=== PATIENT | male | born 1965 | race Caucasian/White ===

== ENCOUNTER 2023-08-04 07:53 | Observation (INO) | payer OTHER ==
[~2023-08-04] VITALS: Ht 177.8 cm; Wt 102.6 kg
[2023-08-04] MEDS ORDERED: GLIP2.5ER (08:21)
[2023-08-04] MEDS ORDERED: BASAGLAR K100 UNIT/1 SC (08:21)
[2023-08-04] MEDS ORDERED: ZOCOR20 MG PO (08:21)
[2023-08-04] MEDS ORDERED: LISI5 (08:21)
[2023-08-04] MEDS ORDERED: METF500 (08:21)
[2023-08-04] MEDS ORDERED: METF500 PO (08:30)
[2023-08-04] MEDS ORDERED: GLIP10 PO (08:30)
[2023-08-04] MEDS ORDERED: STEGLATRO15 MG PO (08:30)
[2023-08-04] MEDS ORDERED: LISI20 PO (08:30)
[2023-08-04 08:37] LABS: BASOPHILS ABSOLUTE AUTO 0.03 K/mm3 (0.00-0.23); BASOPHILS PERCENT AUTO 0 % (0-2); EOSINOPHILS ABSOLUTE AUTO 0.17 K/mm3 (0.00-0.68); EOSINOPHILS PERCENT AUTO 2 % (0-6); Hematocrit 46.4 % (37.0-53.0); Hemoglobin 15.7 g/dL (13.5-17.5); IMMATURE GRAN ABSOLUTE AUTO 0.04 K/mm3 (0.00-0.10); IMMATURE GRAN PERCENT AUTO 0 % (0-1); LYMPHOCYTES PERCENT AUTO 16 % (21-46); MONOCYTES PERCENT AUTO 6 % (4-13); Mean Corpuscular HGB 28.9 pg (26.0-34.0); Mean Corpuscular HGB Conc 33.8 g/dL (31.5-36.5); Mean Corpuscular Volume 85 fL (80-100); Mean Platelet Volume 9.5 fL (9.1-12.4); NEUTROPHILS ABSOLUTE AUTO 7.35 K/mm3 (1.96-9.15); NEUTROPHILS PERCENT AUTO 75 % (41-73); Platelet Count 181 K/mm3 (150-400); RDW Coefficient Variation 13.1 % (11.7-14.2); RDW Standard Deviation 39.4 fL (35.1-46.3); Red Blood Cell Count 5.44 M/mm3 (4.30-5.90); White Blood Cell Count 9.79 K/mm3 (4.00-11.30)
[2023-08-04 08:57] LABS: Albumin, Blood 3.5 g/dL (3.4-5.0); Albumin/Globulin Ratio 1.1 (0.8-1.8); Bilirubin, Total 0.8 mg/dL (0.1-1.0); Bun/Creatinine Ratio 18.8 (12.0-20.0); Calcium, Blood 9.6 mg/dL (8.5-10.1); Creatinine, Blood 0.69 mg/dL (0.60-1.20); Globulin, Blood 3.2 g/dL (2.2-4.0); Potassium, Blood 4.4 mmol/L (3.5-5.5); Total Protein, Blood 6.7 g/dL (6.4-8.2)
[2023-08-04] MEDS ORDERED: Furosemide 10 MG / ML 2ML Vial IV ONE (10:00)
[2023-08-04] MEDS ORDERED: Acetaminophen 650 MG Supp PR PRN (10:15)
[2023-08-04] MEDS ORDERED: TraZODone HCl 50 MG Tab PO PRN (10:15)
[2023-08-04] MEDS ORDERED: Bisacodyl 10 MG Supp PR PRN (10:15)
[2023-08-04] MEDS ORDERED: FLU VACC QS2023-24(6MOS UP)/PF 60 MCG/0.5 ML SYRINGE IM PRN (10:15)
[2023-08-04] MEDS ORDERED: Ondansetron 4 MG TAB PO PRN (10:20)
[2023-08-04] MEDS ORDERED: Prochlorperazine 25 MG Supp PR PRN (10:20)
[2023-08-04] MEDS ORDERED: Magnesium Hydroxide Conc 10 ML UDC PO PRN (10:20)
[2023-08-04] MEDS ORDERED: Cephalexin Monohydrate 500 MG Cap PO SCH (10:54)
[2023-08-04] MEDS ORDERED: Insulin Human Lispro 100 Units/ML 3ML Syringe SC SCH (11:30)
[2023-08-04 12:19] VITALS: BP 124/85
--- NOTE | 2023-08-04 15:15 | NUR ---
ADMISSION PT ORIENTED TO ROOM 337 FROM THE ER. CALL LIGHT IN REACH. ICE WATER & SNACKS PROVIDED. TELE IN PLACE. SINUS TACH AT 111 PER TECH. PT FAMILY AT BEDSIDE. CALL LIGHT IN REACH. PT EDUCATED TO USE URINAL FOR FLUIDS CAN BE ACCURATELY MEASURED. PT STATES HE UNDERTANDS.
[2023-08-04 15:51] VITALS: BP 124/90
[2023-08-04] MEDS ORDERED: Calcium Carbonate 500 MG Tab Chew PO PRN (16:45)
--- NOTE | 2023-08-04 17:20 | NUR ---
SHIFT SUMMARY PT ADMITTED THIS SHIFT. BLOOD SUGARS WELL CONTROLLED AT THIS TIME IN THE 140S. TELE IN PLACE. CONTINUES TO RUN SINUS TACH IN THE 110S. FINISH GRINDER REPORTED THAT PT IS HAVING OCCATIONAL ST ELEVATION MEASURING 3.1. THIS WAS REPORTED TO DR. WAN. REPEAT TROPONIN ORDERED AND EKG ORDERED. PT REPORTING HEARTBURN, TUMS ORDERED AND GIVEN FOR THIS. NO OTHER ACUTE CHANGES IN ASSESSMENT PRIOR TO DC. PT EDUCATED ON THE IMPORTANCE OF MANAGING DM2 AND THE EFFECTS ON THE BODY THAT CAN HAPPEN. NO OTHER QUESTIONS REQUIRED AT THIS TIME. VS REVIEWED. CALL LIGHT IN REACH.
[2023-08-04 19:23] VITALS: BP 120/90
[2023-08-04] MEDS ORDERED: Insulin Glargine-Yfgn 100 Unit/mL 3 ML SYR SC SCH (21:00)
[2023-08-04] MEDS ORDERED: Lactobacil 2-S.Thermo-Bifido 1 1 Cap PO SCH (21:00)
[2023-08-04] MEDS ORDERED: Famotidine 20 MG Tab PO SCH (21:00)
[2023-08-04] MEDS ORDERED: Ibuprofen 400 MG Tab PO PRN (22:30)
[2023-08-04] MEDS ORDERED: Acetaminophen 325 MG TABLET PO PRN (22:31)
[2023-08-05] VITALS (10 sets, daily range): BP systolic 101–119; BP diastolic 72–89
[2023-08-05 06:02] LABS: BASOPHILS ABSOLUTE AUTO 0.03 K/mm3 (0.00-0.23); BASOPHILS PERCENT AUTO 0 % (0-2); EOSINOPHILS ABSOLUTE AUTO 0.14 K/mm3 (0.00-0.68); EOSINOPHILS PERCENT AUTO 2 % (0-6); Hematocrit 47.1 % (37.0-53.0); Hemoglobin 15.7 g/dL (13.5-17.5); IMMATURE GRAN ABSOLUTE AUTO 0.04 K/mm3 (0.00-0.10); IMMATURE GRAN PERCENT AUTO 1 % (0-1); LYMPHOCYTES PERCENT AUTO 24 % (21-46); MONOCYTES ABSOLUTE AUTO 0.49 K/mm3 (0.16-1.47); MONOCYTES PERCENT AUTO 6 % (4-13); Mean Corpuscular HGB 28.5 pg (26.0-34.0); Mean Corpuscular HGB Conc 33.3 g/dL (31.5-36.5); Mean Corpuscular Volume 86 fL (80-100); Mean Platelet Volume 9.3 fL (9.1-12.4); NEUTROPHILS ABSOLUTE AUTO 5.57 K/mm3 (1.96-9.15); NEUTROPHILS PERCENT AUTO 67 % (41-73); Platelet Count 197 K/mm3 (150-400); RDW Coefficient Variation 13.2 % (11.7-14.2); RDW Standard Deviation 40.5 fL (35.1-46.3); White Blood Cell Count 8.27 K/mm3 (4.00-11.30)
[2023-08-05 06:28] LABS: Bun/Creatinine Ratio 18.2 (12.0-20.0); Calcium, Blood 8.8 mg/dL (8.5-10.1); Creatinine, Blood 0.72 mg/dL (0.60-1.20); Magnesium, Blood 2.1 mg/dL (1.6-2.4); Phosphorus, Blood 3.1 mg/dL (2.5-4.9); Potassium, Blood 3.9 mmol/L (3.5-5.5)
[2023-08-05] MEDS ORDERED: Sacubitril/Valsartan 24 MG-26 MG Tab PO SCH (09:00)
[2023-08-05] MEDS ORDERED: Atorvastatin 40 MG Tab PO SCH ×2 (09:00→21:00)
[2023-08-05] MEDS ORDERED: Metoprolol Succinate 25 MG TABCR PO SCH (09:00)
[2023-08-05] MEDS ORDERED: Lisinopril 20 MG Tab PO SCH (09:00)
[2023-08-05] MEDS ORDERED: Furosemide 10 MG/ML 4ML Vial IV SCH (09:00)
[2023-08-05] MEDS ORDERED: Enoxaparin 40 MG/0.4 ML SYR SC SCH (09:00)
[2023-08-05] MEDS ORDERED: Furosemide 10 MG / ML 2ML Vial IV SCH ×2 (09:00)
--- NOTE | 2023-08-05 09:20 | NUR ---
SHIFT SUMMARY PT IS A&0X4, VSS ON RA. ST 110'S-120'S PER TELEMETRY. C/O PAIN IN BILATERAL SHOULDERS, CALLED MD TO GET PAIN MEDICATION. UPDATED EVELYN'S DIET TO CONSISTENT CARB/HEART HEALTHY. C/O FEELING LIKE HIS FOOD GETS STUCK. ALWAYS FEELS FULL, YET HUNGRY. UP AD SEAN IN ROOM INDEPENDENTLY. VOIDING ADEQUATE AMOUNTS OF URINE IN URINAL. NO BM THIS SHIFT. BED IN LOWEST POSITION, CALL LIGHT WITHIN REACH.
[2023-08-05] MEDS ORDERED: NS 250 ML IV ONE (16:46)
[2023-08-05] MEDS ORDERED: Heparin Sodium 1000 Units/ML 10ML MDV ONE (16:47)
[2023-08-05] MEDS ORDERED: NS 1,000 ML IV ONE ×2 (16:47→16:58)
[2023-08-05] MEDS ORDERED: NiCARdipine HCL 1,000 MCG/5 ML SYR ONE (16:47)
[2023-08-05] MEDS ORDERED: Nitroglycerin 2 MG/20 ML BTL ONE (16:47)
[2023-08-05] MEDS ORDERED: Midazolam HCl 1MG / ML 2ML Vial ONE (16:58)
[2023-08-05] MEDS ORDERED: FentaNYL Citrate 50 MCG/ML 2 ML Injection ONE (16:58)
--- NOTE | 2023-08-05 17:17 | NUR ---
SHIFT SUMMARY Pt remains A&Ox3 this shift. VSS. Resp even nonlabored. Ambulating in room independently. Motrin effective for chronic shoulder pain. NPO since 1030 this am for cardiac angiogram. Pt father at bedside with all pt belongings. 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 Report called to [facility] for PCU transfer after angiogram.
--- NOTE | 2023-08-05 18:17 | NUR ---
PT ARRIVED TO PCU AT 1803. HE HAS A RIGHT TR BAND W/ 11CC'S OF AIR IN THE BALO[place]. IT WAS INFLATED AT 1755. IN REPORT I WAS TOLD TO WAIT TWO HOURS BEFORE DEFLATING THE BALOON. THE ANGIO SITE IS W/O HEMATOMA, BLEEDING, TENDERNESS, AND CAP REFILL IS <3SECS. THE PT WILL BE COBRA TRANSFERING OUT FOR A CABG. PT DENIES ANY ANGINA OR CHEST PRESSURE. ON TELE HE IS ST 110'S. SEE NOTES FOR ANY UPDATES.
[2023-08-05 19:21] LABS: Anti-Xa UFH, PHA Monitoring 0.56 IU/mL; International Normalized Ratio 1.02; Prothrombin Time Results 10.7 Sec (9.7-11.5)
[2023-08-05] MEDS ORDERED: Heparin Sodium,Porcine/0.5 NS 500 ML IV SCH (19:35)
--- NOTE | 2023-08-05 22:40 | NUR ---
UPDATE TR BAND SUCCESSFULLY RECOVERED. NO TENDERNESS, BLEEDING, OR HEMATOMA NOTED. PULSES PRESENT ABOVE AND BELOW SITE WITH HAND WARM TO THE TOUCH. NO TINGLING OR SENSATION LOSS REPORTED. SITE CLEANED WITH CHORHEXIDINE AND TEGADERM PLACED.
[2023-08-06 02:19] LABS: BASOPHILS ABSOLUTE AUTO 0.04 K/mm3 (0.00-0.23); BASOPHILS PERCENT AUTO 1 % (0-2); EOSINOPHILS ABSOLUTE AUTO 0.21 K/mm3 (0.00-0.68); EOSINOPHILS PERCENT AUTO 3 % (0-6); Hematocrit 47.1 % (37.0-53.0); Hemoglobin 15.7 g/dL (13.5-17.5); IMMATURE GRAN ABSOLUTE AUTO 0.02 K/mm3 (0.00-0.10); IMMATURE GRAN PERCENT AUTO 0 % (0-1); LYMPHOCYTES ABSOLUTE AUTO 2.36 K/mm3 (0.84-5.20); LYMPHOCYTES PERCENT AUTO 37 % (21-46); MONOCYTES ABSOLUTE AUTO 0.55 K/mm3 (0.16-1.47); MONOCYTES PERCENT AUTO 9 % (4-13); Mean Corpuscular HGB 28.6 pg (26.0-34.0); Mean Corpuscular HGB Conc 33.3 g/dL (31.5-36.5); Mean Corpuscular Volume 86 fL (80-100); NEUTROPHILS ABSOLUTE AUTO 3.27 K/mm3 (1.96-9.15); NEUTROPHILS PERCENT AUTO 51 % (41-73); Platelet Count 185 K/mm3 (150-400); RDW Coefficient Variation 13.2 % (11.7-14.2); RDW Standard Deviation 40.8 fL (35.1-46.3); Red Blood Cell Count 5.49 M/mm3 (4.30-5.90); White Blood Cell Count 6.45 K/mm3 (4.00-11.30)
[2023-08-06 03:06] LABS: Bun/Creatinine Ratio 23.4 (12.0-20.0); Creatinine, Blood 0.77 mg/dL (0.60-1.20); Magnesium, Blood 2.2 mg/dL (1.6-2.4); Potassium, Blood 3.9 mmol/L (3.5-5.5)
[2023-08-06] MEDS ORDERED: Dose Adjust by Pharmacy XX STA (03:15)
[2023-08-06] MEDS ORDERED: Heparin Sodium 5000 Units/ML 1ML MDV IV ONE (03:20)
[2023-08-06 03:24] VITALS: BP 121/83
--- NOTE | 2023-08-06 05:16 | NUR ---
SHIFT SUMMARY A/Ox4 AND COOPERATIVE WITH CARE. ANSWERS QUESTIONS APPROPRIATELY AND ABLE TO MAKE HIS NEEDS KNOWN. NO ACUTE EVENTS OVERNIGHT. CARDIAC, REMAINS IN SR-ST 90-100'S THROUGHOUT THE NIGHT WITH NO REPORTS OF CP OR PRESSURE. SBP REMAINS STABLE RANGING 110-120'S. UNDERWENT ANGIOGRAM ON 08/05 WITH RIGHT RADIAL ACCESS SITE WNL. SEE UPDATE NOTE FOR DETAILS. RESPIRATORY, MAINTAINS SPO2 >90% ON RA WITH NO REPORTS OF SOB OR DYSPNEA NOTED. PT REPORTS BEING ABLE TO LAY FLAT WITH SIGNIFICANT IMPROVEMENT TO ABILITY TO BREATH WHEN COMPARED TO PRE-ADMISSION. SNORING WHEN SLEEPING NOTED. GI/, ABLE TO AMBULATE TO BATHROOM WITH MINIMAL ASSISTANCE TO MANAGED IV POLE. VOIDING YELLOW URINE WITHOUT DIFFICULTY. NO BM THIS SHIFT. COME HEARTBURN REPORTED WITH PRN TUMS GIVEN. HEPARIN gtt IS BEING MANAGED BY PHARMACY AND HAS BEEN INFUSING THROUGHOUT THE NIGHT ORDERED PER EMAR. PENDING COBRA TRANSFER TO [facility] THIS AM. NO NEW ORDERS AT THIS TIME, WILL REPORT TO ONCOMING RN. GEORGINA MONTOYA OF THIS NOTE.
--- NOTE | 2023-08-06 05:44 | NUR ---
UPDATE GAVE REPORT TO RECEIVING AGNELA SOUZA AT [facility]. ALL QUESTIONS ANSWERED. LINDSAY ERICKSON OF THIS NOTE
[2023-08-06 05:52] VITALS: BP 121/93
[2023-08-06] MEDS ORDERED: Omeprazole 20 MG CapCR PO SCH (06:00)
[2023-08-06 06:11] VITALS: BP 121/93
--- NOTE | 2023-08-06 06:29 | NUR ---
UPDATE [facility] ARRIVED TO CLINICAL PRACTITIONER PT FOR TRANSFER TO [facility] FOR HIGHER LEVEL OF CARE. REPORT GIVEN TO EMS, ALL QUESTIONS ANSWERED. VSS, GEORGINA UPON TRANSFER.
[2023-08-06] MEDS ORDERED: Torsemide 20 MG TAB PO SCH (09:00)
[2023-08-06] MEDS ORDERED: Empagliflozin 10 MG TAB PO SCH (09:00)
[2023-08-06] MEDS ORDERED: Aspirin 81 MG Chew PO SCH (09:00)
== END 2023-08-06 06:20 | disposition short-term general hospital (02) ==
LOC: ER 07:53 → SURS 07:54 → MEDS 12:17 → PCU 08-05 17:19
PROVIDERS: Emergency Medicine; Internal Medicine Cardiovascular Disease; ADMIT Hospitalist
DX: I11.0 Hypertensive heart disease with heart failure (principal); I50.21 Acute systolic (congestive) heart failure; E11.40 Type 2 diabetes mellitus with diabetic neuropathy, unspecified; E78.5 Hyperlipidemia, unspecified; Z79.899 Other long term (current) drug therapy
CPT/HCPCS: 36415; 71045; 76937; 80048; 80053; 82947; 83735; 83880; 84100; 84484; 85025; 85520; 85610; 85730; 93005; 93010; 93306; 93454; 94762; 96372; 96374; 96375; 96376; 99152; 99153; 99285-25; A9270; C1769; C1887; C1894; G0378; J1644; J1650; J1815; J1940; J2250; J3010; J7030; J7050; Q9967

== ENCOUNTER → 2024-07-01 | Outpatient (CLI) | payer OTHER ==
[~2024-07-01] MED LIST: BASAGLAR K100 UNIT/1 SC; GLIP10 PO; GLIP2.5ER; LISI20 PO; LISI5; METF500; METF500 PO; STEGLATRO15 MG PO; ZOCOR20 MG PO
[2024-07-01 13:19] LABS: Albumin, Blood 3.4 g/dL (3.4-5.0); Albumin/Globulin Ratio 0.9 (0.8-1.8); Bilirubin, Total 0.9 mg/dL (0.1-1.0); Bun/Creatinine Ratio 32.5 (12.0-20.0); Calcium, Blood 9.4 mg/dL (8.5-10.1); Creatinine, Blood 0.74 mg/dL (0.60-1.20); Globulin, Blood 3.7 g/dL (2.2-4.0); Potassium, Blood 4.2 mmol/L (3.5-5.5); Total Protein, Blood 7.1 g/dL (6.4-8.2)
== END ==
LOC: LAB SHORT 11:46 → LAB 11:46 → LAB FUT 11-03 09:55
PROVIDERS: Family Medicine
DX: E11.9 Type 2 diabetes mellitus without complications (principal); J32.9 Chronic sinusitis, unspecified; I50.9 Heart failure, unspecified; I25.10 Atherosclerotic heart disease of native coronary artery without angina pectoris
CPT/HCPCS: 36415; 80053; 83036

== ENCOUNTER → 2025-05-05 | Outpatient (CLI) | payer OTHER ==
[2025-05-07 09:42] LABS: Protein, Urine Quantitative <5.0 mg/dL (0.0-11.9)
== END ==
LOC: LAB SHORT 06:00 → LAB 06:00
PROVIDERS: Internal Medicine Nephrology
DX: N18.30 Chronic kidney disease, stage 3 unspecified (principal); R80.9 Proteinuria, unspecified
CPT/HCPCS: 81050; 82570; 84156